=== PATIENT | male | born 1950 | race Caucasian/White ===

== ENCOUNTER 2019-05-09 13:20 | Outpatient (CLI) | payer OTHER | END 2019-05-09 21:04 | disposition home or self-care (01) | LOC: SRD 13:20 | PROVIDERS: ATTEND Internal Medicine | DX: M19.042 Primary osteoarthritis, left hand (principal); M11.242 Other chondrocalcinosis, left hand; M89.342 Hypertrophy of bone, left hand; G56.02 Carpal tunnel syndrome, left upper limb ==